=== PATIENT | male | born 1980 | race Caucasian/White ===

== ENCOUNTER 2019-04-12 19:58 | Emergency (ER) | payer SELFPAY ==
[~2019-04-12] VITALS: Ht 165.1 cm; Wt 78.0 kg
[2019-04-12] MEDS ORDERED: MORPHINE SULFATE 4 MG/ML SYR IM SCH (22:17)
== END 2019-04-12 22:54 | disposition home or self-care (01) ==
LOC: MED 19:58
DX: L03.114 Cellulitis of left upper limb (principal); F17.290 Nicotine dependence, other tobacco product, uncomplicated
CPT/HCPCS: 99283; J2270; 96372

== ENCOUNTER 2022-04-21 13:57 | Emergency (ER) | payer MEDICAID ==
[~2022-04-21] VITALS: Ht 12.7 cm; Wt 74.8 kg
[2022-04-21 14:08] VITALS: BP 139/86
[2022-04-21 15:11] LABS: BASOPHILS % (AUTO) 0.4 % (0.0-2.0); EOSINOPHILS # (AUTO) 0.4 K/uL (0-0.4); EOSINOPHILS % (AUTO) 5.8 % (0.0-4.0); HEMATOCRIT 42.2 % (36-52); HEMOGLOBIN 14.3 g/dL (12.0-18.0); LYMPHOCYTES # (AUTO) 1.1 K/uL (2.0-11.5); LYMPHOCYTES % (AUTO) 15.2 % (20.5-51.1); MEAN CORPUSCULAR HEMOGLOBIN 30 pg (27-31); MEAN CORPUSCULAR HGB CONC 34 g/dL (33-37); MEAN CORPUSCULAR VOLUME 89.9 fL (80-94); MONOCYTES # (AUTO) 0.7 K/uL (0.8-1.0); MONOCYTES % (AUTO) 9.1 % (1.7-9.3); NEUTROPHILS % (AUTO) 69.5 % (42.2-75.2); PLATELET COUNT (AUTO) 335 K/uL (140-450); RED BLOOD CELL COUNT(AUTO) 4.69 MIL/uL (4.20-6.10); RED CELL DISTRIBUTION WIDTH 14.1 % (11.6-13.7); WHITE BLOOD COUNT (AUTO) 7.2 K/uL (4.8-10.8)
[2022-04-21] MEDS: FAMOTIDINE 20 MG TAB PO ONE (15:35)
[2022-04-21] MEDS: KETOROLAC 30 MG/ML VIAL IM ONE (15:35)
[2022-04-21] MEDS: ONDANSETRON 4 MG ODT PO ONE (15:36)
[2022-04-21 15:43] LABS: ALBUMIN 3.6 g/dL (3.4-5.0); ANION GAP 7.2 (8-16); CARBON DIOXIDE 31.8 mmol/L (21-32); CREATININE 0.9 mg/dL (0.6-1.3); TOTAL BILIRUBIN 0.4 mg/dL (0.0-1.0)
[2022-04-21] MEDS ORDERED: ONDA-188 PO (16:07)
[2022-04-21] MEDS ORDERED: FAMO-92 PO (16:07)
== END 2022-04-21 17:30 | disposition left against medical advice (07) ==
LOC: MED 13:57
DX: R11.2 Nausea with vomiting, unspecified (principal); R19.7 Diarrhea, unspecified; R10.13 Epigastric pain; Z79.899 Other long term (current) drug therapy
CPT/HCPCS: 36415; 80053; 83690; 85025; 96372; 99283; J1885; Q0162